=== PATIENT | male | born 1995 | race African-American/Black ===

== ENCOUNTER 2021-12-30 01:29 | Emergency (ER) | payer SELFPAY ==
[2021-12-30 02:11] VITALS: BP 168/105; PULSE 81; RESP 18; TEMP 36.9; O2SAT 99; BMI 32.3
== END 2021-12-30 07:26 | disposition left against medical advice (07) ==
PROVIDERS: Emergency Provider Emergency Medicine
DX: R20.2 Paresthesia of skin (principal); R51.9 Headache, unspecified
CPT/HCPCS: 99281